=== PATIENT | female | born 1980 | race Caucasian/White ===

== ENCOUNTER 2017-05-25 00:34 | Emergency (ER) | payer OTHER ==
[~2017-05-25] VITALS: Ht 172.7 cm; Wt 62.1 kg
[2017-05-25] MEDS ORDERED: NORCO 5-325 TA1 EACH PO (01:22)
[2017-05-25 01:51] VITALS: BP 118/78
== END 2017-05-25 01:52 | disposition home or self-care (01) ==
LOC: M.ERS 00:34
DX: S62.607A Fracture of unspecified phalanx of left little finger, initial encounter for closed fracture (principal); W23.0XXA Caught, crushed, jammed, or pinched between moving objects, initial encounter; Y93.89 Activity, other specified; Y92.89 Other specified places as the place of occurrence of the external cause; Y99.8 Other external cause status

== ENCOUNTER 2018-08-03 23:55 | Emergency (ER) | payer OTHER ==
[~2018-08-03] VITALS: Ht 170.2 cm; Wt 68.0 kg
[~2018-08-03 23:55] MED LIST: NORCO 5-325 TA1 EACH PO
[2018-08-03 23:57] VITALS: BP 135/64
[2018-08-04] MEDS ORDERED: VIVITROL380 MG IM (00:01)
[2018-08-04] MEDS ORDERED: PROZAC20 MG PO (04:58)
== END 2018-08-04 00:07 | disposition left against medical advice (07) ==
LOC: M.ERS 23:55
DX: F10.129 Alcohol abuse with intoxication, unspecified (principal); Y90.9 Presence of alcohol in blood, level not specified; R11.2 Nausea with vomiting, unspecified; F17.210 Nicotine dependence, cigarettes, uncomplicated; Z98.890 Other specified postprocedural states

== ENCOUNTER 2018-08-04 04:53 | Emergency (ER) | payer OTHER ==
[~2018-08-04] VITALS: Ht 170.2 cm; Wt 67.5 kg
[~2018-08-04 04:53] MED LIST changes: +VIVITROL380 MG IM
[2018-08-04] MEDS ORDERED: PROZAC20 MG PO (04:58)
[2018-08-04 05:25] LABS: ABSOLUTE EOSINOPHILS 0.1 thou/uL (0.0-0.7); ABSOLUTE LYMPHOCYTES 1.3 thou/uL (0.8-5.3); ABSOLUTE MONOCYTES 0.6 thou/uL (0.0-1.2); ABSOLUTE NEUTROPHILS 5.6 thou/uL (1.6-8.1); BASOPHILS 0.2 %; EOSINOPHILS 0.9 %; HEMATOCRIT 30.5 % (37.0-47.0); HEMOGLOBIN 9.6 gm/dL (12.0-15.0); MCHC 31.5 g/dL (28.0-37.0); MONOCYTES 7.5 %; MPV 8.6 fl. (7.2-11.1); NUCLEATED RBCS 0 /100WBC; PLATELET COUNT* 278 thou/uL (150-400); POLYS 74.4 %; RBC 4.19 mil/uL (4.20-5.00); WBC 7.6 thou/uL (4.0-11.0)
[2018-08-04 05:33] LABS: CREATININE 0.6 mg/dL (0.6-1.3)
[2018-08-04 05:37] LABS: ALBUMIN 3.3 g/dL (3.4-5.0); TOTAL BILIRUBIN 0.2 mg/dL (<0.1-1.0); TOTAL PROTEIN 6.9 g/dL (6.4-8.2)
[2018-08-04 05:39] LABS: POTASSIUM 2.7 mmol/L (3.5-5.1)
[2018-08-04 07:01] VITALS: BP 94/49
[2018-08-04 07:05] LABS: ANISOCYTOSIS 1+; HYPOCHROMASIA 1+
== END 2018-08-04 07:01 | disposition home or self-care (01) ==
LOC: M.ERS 04:53
PROVIDERS: Personal Emergency Response Attendant
DX: S00.12XA Contusion of left eyelid and periocular area, initial encounter (principal); S00.83XA Contusion of other part of head, initial encounter; S50.812A Abrasion of left forearm, initial encounter; S50.811A Abrasion of right forearm, initial encounter; S90.811A Abrasion, right foot, initial encounter; F10.129 Alcohol abuse with intoxication, unspecified; Y90.5 Blood alcohol level of 100-119 mg/100 ml; E87.6 Hypokalemia; F32.9 Major depressive disorder, single episode, unspecified; Z98.890 Other specified postprocedural states; Y08.89XA Assault by other specified means, initial encounter; Y93.89 Activity, other specified; Y92.89 Other specified places as the place of occurrence of the external cause; Y99.8 Other external cause status

== ENCOUNTER 2018-08-25 21:49 | Emergency (ER) | payer OTHER ==
[~2018-08-25] VITALS: Ht 170.2 cm; Wt 68.0 kg
[~2018-08-25 21:49] MED LIST changes: +PROZAC20 MG PO
[2018-08-25 22:43] LABS: HEMATOCRIT 31.7 % (37.0-47.0); HEMOGLOBIN 10.1 gm/dL (12.0-15.0); MCH 23.2 pg (26.0-34.0); MCHC 31.8 g/dL (28.0-37.0); MCV 73.1 fL (80.0-100.0); MPV 8.7 fl. (7.2-11.1); RBC 4.34 mil/uL (4.20-5.00); RDW-CV 19.5 % (10.5-14.5); WBC 13.1 thou/uL (4.0-11.0)
[2018-08-25 22:47] LABS: CALCIUM 8.7 mg/dL (8.5-10.1); CREATININE 0.6 mg/dL (0.6-1.3)
[2018-08-25 22:51] LABS: POTASSIUM 2.9 mmol/L (3.5-5.1)
[2018-08-25 23:26] LABS: URINE BILIRUBIN NEGATIVE (Negative); URINE BLOOD TRACE (Negative); URINE CLARITY CLEAR; URINE COLOR YELLOW; URINE GLUCOSE-RANDOM NEGATIVE (Negative); URINE KETONES NEGATIVE (Negative); URINE LEUKOCYTES NEGATIVE (Negative); URINE NITRITE NEGATIVE (Negative); URINE PROTEIN NEGATIVE (Negative); URINE UROBILINOGEN 0.2 E.U./dl (0.2-1.0)
[2018-08-25 23:40] LABS: AMP/METHAMP POSITIVE (Negative); BENZODIAZEPINES Negative (Negative); COCAINE Negative (Negative); METHADONE Negative (Negative); OPIATES Negative (Negative); PCP Negative (Negative); THC Negative (Negative)
[2018-08-25 23:47] LABS: BARBITURATES Negative (Negative)
[2018-08-26] MEDS ORDERED: IBUPROFEN 800800 M1 PO (00:10)
[2018-08-26] MEDS ORDERED: FLEXERIL PO (00:10)
[2018-08-26 00:40] VITALS: BP 110/66
== END 2018-08-26 00:40 | disposition home or self-care (01) ==
LOC: M.ERS 21:49
PROVIDERS: Emergency Medicine Emergency Medical Services
DX: M54.5 Low back pain (principal); F32.9 Major depressive disorder, single episode, unspecified; Z98.890 Other specified postprocedural states

== ENCOUNTER 2018-10-10 23:45 | Emergency (ER) | payer OTHER ==
[~2018-10-10] VITALS: Ht 170.2 cm; Wt 65.5 kg
[~2018-10-10 23:45] MED LIST changes: +FLEXERIL PO; +IBUPROFEN 800800 M1 PO
[2018-10-11 00:14] LABS: ABSOLUTE LYMPHOCYTES 0.9 thou/uL (0.8-5.3); ABSOLUTE NEUTROPHILS 8.5 thou/uL (1.6-8.1); BASOPHILS 0.1 %; EOSINOPHILS 0.3 %; HEMATOCRIT 31.7 % (37.0-47.0); HEMOGLOBIN 10.2 gm/dL (12.0-15.0); LYMPHOCYTES 8.6 %; MCH 24.7 pg (26.0-34.0); MCHC 32.3 g/dL (28.0-37.0); MCV 76.3 fL (80.0-100.0); MONOCYTES 9.6 %; MPV 9.3 fl. (7.2-11.1); NUCLEATED RBCS 0 /100WBC; PLATELET COUNT* 234 thou/uL (150-400); POLYS 81.4 %; RBC 4.15 mil/uL (4.20-5.00); RDW-CV 20.3 % (10.5-14.5); WBC 10.4 thou/uL (4.0-11.0)
[2018-10-11 00:18] LABS: ANION GAP 14 mmol/L (7-16); BUN 13 mg/dL (7-18); CALCIUM 8.6 mg/dL (8.5-10.1); CHLORIDE 102 mmol/L (98-107); CO2 21 mmol/L (21-32); GLUCOSE 115 mg/dL (70-99); SODIUM 137 mmol/L (136-145)
[2018-10-11 00:20] LABS: POTASSIUM 2.6 mmol/L (3.5-5.1)
[2018-10-11 00:27] LABS: ALBUMIN 3.9 g/dL (3.4-5.0); ALKALINE PHOSPHATASE 77 U/L (46-116); SGOT 30 U/L (15-37); SGPT 30 U/L (30-65); TOTAL BILIRUBIN 0.6 mg/dL (<0.1-1.0); TOTAL PROTEIN 7.9 g/dL (6.4-8.2); TROPONIN-I LEVEL <0.06 ng/mL (<0.06)
[2018-10-11 00:39] LABS: ANISOCYTOSIS 2+; HYPOCHROMASIA 1+; PLATELET ESTIMATE ADEQUATE; POLYCHROMASIA 1+
[2018-10-11 06:32] VITALS: BP 99/45
--- NOTE | 2018-10-11 10:38 | EKG ---
[place] [address] ELECTROCARDIOGRAM REPORT Name: JESSE BLACK Room: [facility]#: [id number] Admission: 10/10/18 Attend Phys: Discharge: 10/11/18 Date of : 78 Report #: [id number] THIS REPORT FOR: //name// [facility] ED Test Date: 2018-10-11 Test Time: 02:27:29 Pat Name: JESSE BLACK Department: Room: Gender: F Tapper Hand: MARK : 1980 Requested By: Nadeen Glaser Order Number: [id number] MD: Abhijeet Yan Measurements Intervals [place] Rate: 74 P: 71 MI: 178 QRS: 38 QRSD: 102 T: 36 QT: 433 QTc: 481 Interpretive Statements Sinus rhythm Artifact in lead(s) I,III,aVL and baseline wander in lead(s) I,III,aVR,aVL,V2 No previous ECG available for comparison Electronically Signed On 10-11-2018 10:38:17 CDT by Abhijeet Yan [email or web address] <ELECTRONICALLY SIGNED> By: Abhijeet Yan MD, [facility] 10/11/18 1038 6 Abhijeet Yan MD, [facility] /EPI
== END 2018-10-11 06:32 | disposition home or self-care (01) ==
LOC: M.ERS 23:45
PROVIDERS: Emergency Medicine
DX: F15.10 Other stimulant abuse, uncomplicated (principal); R11.2 Nausea with vomiting, unspecified; F32.9 Major depressive disorder, single episode, unspecified; Z98.890 Other specified postprocedural states